=== PATIENT | female | born 1950 | race Caucasian/White ===

== ENCOUNTER 2016-09-28 08:58 | Day surgery (SDC) | payer MEDICARE, BC ==
[~2016-09-28 08:58] MED LIST: Metoclopramide 10 MG/2 ML SDV IV PRN; Sodium Chloride 0.9% 1,000 ML IV SCH; Sodium Chloride 0.9% 10 ML Syringe FLUSH PRN
[2016-09-28 13:07] VITALS: BP 151/74
--- NOTE | 2016-09-28 19:13 | OR ---
DATE OF OPERATION: 09/28/2016 PREOPERATIVE DIAGNOSIS: Surveillance colonoscopy, prior history of polyps. POSTOPERATIVE DIAGNOSIS: Normal colonoscopy. OPERATION: Surveillance colonoscopy. COMPLICATIONS: None. DRAINS: None. SPECIMENS: None. ESTIMATED BLOOD LOSS: Zero. ANESTHESIA: General propofol anesthesia. INDICATION: Ms. Velazquez is a 66-year-old female who has been getting frequent colonoscopies due to a prior history of polyps as well as a grandfather with colon cancer. The above- mentioned procedure was explained. The risks, benefits, and complications were explained. The patient understood and agreed, and she was brought to the operating room. DESCRIPTION OF PROCEDURE: The patient was brought to the operating room and placed in a left lateral decubitus position on the operating room table. Satisfactory general propofol anesthesia was administered. A finger examination of the rectum revealed no significant abnormalities. I then placed the endoscope by finger introduction into the rectum and subsequently advanced this to the level of the cecum. The cecum was identified by the appendiceal orifice, the ileocecal valve, and the cecal strap. Careful evaluation of the mucosa was performed on withdrawal, which revealed no significant findings, including no polyps, no telangiectasias, no diverticula or neoplastic growths. Retroflexion was performed in the rectum, which revealed no significant abnormalities. The colon was decompressed. The endoscope was withdrawn. The patient tolerated the procedure well. There were no complications. Instrument count was correct. The patient was awoken in the OR and taken to the PACU for recovery. CAROLINE /[id number]
== END 2016-09-28 12:45 | disposition home or self-care (01) ==
LOC: LB.SDS 08:58
PROVIDERS: ATTEND Surgery
DX: Z12.11 Encounter for screening for malignant neoplasm of colon (principal)
CPT/HCPCS: G0105; J7040

== ENCOUNTER 2019-01-03 10:28 | Emergency (ER) | payer MEDICARE, BC ==
[2019-01-03] MEDS ORDERED: Ciprofloxacin 500 MG Tab ONE (11:15)
[2019-01-03 11:37] VITALS: BP 145/80; PULSE 87
--- NOTE | 2019-01-03 11:39 | EDM.PDOC ---
ED HPI GENERAL MEDICAL PROBLEM - General Chief Complaint: Genitourinary Problem Stated Complaint: BLADDER INFECTION Time Seen by Provider: 01/03/19 11:10 Source of Information: Reports: Patient History Limitations: Reports: No Limitations - History of Present Illness INITIAL COMMENTS - FREE TEXT/NARRATIVE: According to patient she claims she has been having increased urinary frequency since yesterday. Pt did try some cranberry capsules last night.Since today morning the frequency is asso with burning sensation with urination. also has been having a constant urge to urinate. Has been having some suprapubic discomfort. No vaginal bleeding or discharge. No fever or chills. No nausea or vomiting. No back pain. No other complaints. Onset Date: 01/02/19 Location: Reports: Abdomen Quality: Reports: Ache Severity: Mild Improves with: Reports: None Worsens with: Reports: None Associated Symptoms: Denies: Chest Pain, Diaphoresis, Fever/Chills, Headaches, Nausea/Vomiting, Rash, Seizure, Shortness of Breath, Weakness - Related Data Allergies Allergy/AdvReac Type Severity Reaction Status Date / Time No Known Allergies Allergy Verified 01/03/19 11:10 Home Meds: Home Meds Aspirin 81 mg PO DAILY 11/08/15 [History] Omeprazole Magnesium [Prilosec Otc] 20 mg PO DAILY 11/08/15 [History] atorvaSTATin [Lipitor] 40 mg PO BEDTIME 11/08/15 [History] Past Medical History Cardiovascular History: Reports: High Cholesterol Gastrointestinal History: Reports: Colon Polyp [employer] History: Reports: - Infectious Disease History Infectious Disease History: Reports: Chicken Pox, Measles - Past Surgical History HEENT Surgical History: Reports: Other (See Below) Social & Family History - Family History Family Medical History: Noncontributory - Caffeine Use Caffeine Use: Reports: Coffee ED ROS GENERAL - Review of Systems Review Of Systems: See Below Constitutional: Denies: Fever, Chills HEENT: Denies: Ear Pain, Rhinitis, Throat Pain Respiratory: Denies: Cough, Sputum Cardiovascular: Denies: Chest Pain, Lightheadedness GI/Abdominal: Reports: Abdominal Pain. Denies: Constipation, Diarrhea, Distension, Nausea, Vomiting : Reports: Dysuria, Frequency, Urgency. Denies: Discharge, Flank Pain Musculoskeletal: Denies: Joint Pain, Joint Swelling ED EXAM, GENERAL - Physical Exam Exam: See Below Exam Limited By: No Limitations General Appearance: Alert, WD/WN, No Apparent Distress Eye Exam: Bilateral Eye: EOMI, PERRL Ears: Normal External Exam, Normal Canal, Hearing Grossly Normal, Normal TMs Nose: Normal Inspection, Normal Mucosa, No Blood Throat/Mouth: Normal Inspection, Normal Lips, Normal Teeth, Normal Gums, Normal Oropharynx, Normal Voice, No Airway Compromise Head: Atraumatic, Normocephalic Neck: Normal Inspection, Supple, Non-Tender, Full Range of Motion Respiratory/Chest: No Respiratory Distress, Lungs Clear, Normal Breath Sounds, No Accessory Muscle Use, Chest Non-Tender Cardiovascular: Normal Peripheral Pulses, Regular Rate, Rhythm, No Edema, No Gallop, No JVD, No Murmur, No Rub GI/Abdominal: Normal Bowel Sounds, Soft, No Organomegaly, No Distention, No Abnormal Bruit, No Mass, Tender (suprapubic discomfort) Extremities: Normal Inspection Course - Vital Signs Text/Narrative:: Pt's UA does show moderate leucs and micro shows 50-75 WBC and 0-5 Rbcs. Pt reassured that she has UTI. I have started her on Cipro 500mg twice daily. Advised to drink plenty of fluids and 1-2 glass of cranberry juice. Urine culture sent, will followup with results. Followup in clinic if symptoms worsen. - Orders/Labs/Meds Orders: Active Orders 24 hr Category Date Time Status CULTURE URINE [RM] Stat Lab 01/03/19 11:31 Ordered Labs: Laboratory Tests 01/03/19 Range/Units 11:16 Urine Color Yellow Urine Appearance Clear (CLEAR) Urine pH 7.0 (5.0-8.0) Ur Specific [place] 1.010 (1.003-1.030) Urine Protein Negative (NEGATIVE) mg/dL Urine Glucose (UA) Negative (NEGATIVE) mg/dL Urine Ketones Negative (NEGATIVE) mg/dL Urine Occult Blood Moderate H (NEGATIVE) Urine Nitrite Negative (NEGATIVE) Urine Bilirubin Negative (NEGATIVE) Urine Urobilinogen 0.2 (0.2-1.0) E.U./dL Ur Leukocyte Esterase Moderate H (NEGATIVE) Urine RBC 0-5 H /HPF Urine WBC 50-75 H /HPF Urine WBC Clumps Few /HPF Ur Squamous Epith Cells Occasional /HPF Urine Bacteria Occasional /HPF Departure - Departure Time of Disposition: 11:40 Disposition: Home, Self-Care 01 Condition: Fair Clinical Impression: UTI, Urinary tract infectious disease - Discharge Information *PRESCRIPTION DRUG MONITORING PROGRAM REVIEWED*: Not Applicable *COPY OF PRESCRIPTION DRUG MONITORING REPORT IN PATIENT RAJNI: Not Applicable Instructions: Urinary Tract Infection, Adult, Ciprofloxacin tablets Referrals: PCP,None [Primary Care Provider] - Forms: ED Department Discharge Care Plan Goals: Pt has acute UTI. Pt reassured. advised plenty of fluids. 1-2 glass of cranberry juice. Started on Cipro 500mg twice daily for 1 wk. Will send urine culture and followup with results. Return to clinic if symptoms worsen. - Problem List & Annotations (1) UTI, Urinary tract infectious disease SNOMED Code(s): 99582553 Code(s): N39.0 - URINARY TRACT INFECTION, SITE NOT SPECIFIED Status: Acute Current Visit: Yes - Problem List Review Problem List Initiated/Reviewed/Updated: Yes - My Orders Last 24 Hours: My Active Orders 01/03/19 11:31 CULTURE URINE [RM] Stat - Assessment/Plan Last 24 Hours: My Active Orders 01/03/19 11:31 CULTURE URINE [RM] Stat Assessment:: UTI Plan: Pt's UA does show moderate leucs and micro shows 50-75 WBC and 0-5 Rbcs. Pt reassured that she has UTI. I have started her on Cipro 500mg twice daily. Advised to drink plenty of fluids and 1-2 glass of cranberry juice. Urine culture sent, will followup with results. Followup in clinic if symptoms worsen.
== END 2019-01-03 11:33 | disposition home or self-care (01) ==
LOC: LB.ED 10:28
DX: N39.0 Urinary tract infection, site not specified (principal); Z79.82 Long term (current) use of aspirin; Z79.899 Other long term (current) drug therapy
CPT/HCPCS: 81001; 87086; 87088; 87186; 99283; A9270